=== PATIENT | male | born 1980 | race Caucasian/White ===

== ENCOUNTER → 2022-08-30 15:01 | Outpatient (CLI) | payer BC, SELFPAY ==
--- NOTE | ~2022-08-30 | XR_ITS ---
EXAM: XR knee RT min 4V DATE: 08/30/2022 15:23 HISTORY: no injury right knee pain for 2 weeks . COMPARISON: None available. FINDINGS: Normal mineralization. No fracture or dislocation. No lytic or blastic lesion. Mild medial joint space narrowing. Mild tricompartmental osteophytosis. Moderate volume joint fluid. No erosion or periosteal change. Soft tissues within normal limits. IMPRESSION: Mild tricompartmental right knee osteoarthritis. Moderate joint effusion. Reviewed, dictated and finalized at location K. IMPRESSION: Mild tricompartmental right knee osteoarthritis. Moderate joint eff usion.
== END ==
PROVIDERS: PCP Family Medicine; Visit Provider Physician Assistant
DX: M17.11 Unilateral primary osteoarthritis, right knee (principal); M25.461 Effusion, right knee
CPT/HCPCS: 73564

== ENCOUNTER 2022-11-13 13:40 | Outpatient (CLI) | payer BC, SELFPAY ==
--- NOTE | ~2022-11-13 | MR_ITS ---
EXAMINATION: MR knee RT wo con DATE: 11/13/2022 14:19 INDICATION: M25.561 - Pain in right knee TECHNIQUE: Magnetic resonance imaging (MRI) of the right knee was performed without intravenous contr ast. Sequences included axial PD-weighted FS FSE, coronal PD-weighted FSE and PD-weighted FS FSE, sag ittal PD-weighted FSE, and sagittal T2-weighted FS FSE. COMPARISON: X-ray right knee 08/22/2022. FINDINGS: Medial compartment: Complex tear of the medial meniscus involving widespread apical blunting, a bucket-handle type tear w ith displacement of the flap towards the intercondylar notch, as well as horizontally and obliquely o riented tear through the posterior horn. Mild diffuse cartilage thinning. No focal cartilage defect. Mild osteophytosis Lateral compartment: Meniscus and cartilage intact. Patellofemoral compartment: Mild partial thickness cartilage irregularity along the medial facet. Retinacula intact. Ligaments and tendons: The ACL, PCL, MCL, and LCL are intact. Small longitudinally oriented type tear of the semimembranosus . Remaining flexor and extensor tendons are intact. Fluid: Small volume joint fluid. Osseous/other: No suspicious focal or diffuse marrow signal. IMPRESSION: Complex tears of the medial meniscus, including a bucket-handle flap displaced toward the intercondyl ar notch. Small longitudinally oriented type tear of the semimembranosus. Reviewed, dictated and finalized at location K. IMPRESSION: Complex tears of the medial meniscus, including a bucket-handle flap displaced toward the intercondylar notch. Small longitudinally oriented type tear of the semimembranosus.
== END 2022-11-13 13:41 | disposition home or self-care (01) ==
PROVIDERS: PCP Family Medicine; Visit Provider Physician Assistant
DX: S83.231D Complex tear of medial meniscus, current injury, right knee, subsequent encounter (principal); X58.XXXD Exposure to other specified factors, subsequent encounter
CPT/HCPCS: 73721

== ENCOUNTER 2024-06-16 07:21 | Emergency (ER) | payer BC, SELFPAY ==
[2024-06-16] VITALS (7 sets, daily range): BP systolic 122–155; BP diastolic 79–99; PULSE 85–100; RESP 11–28; TEMP 37.1; O2SAT 97–100
--- NOTE | ~2024-06-16 | XR_ITS ---
Portable chest x-ray Comparison: 09/19/2009 Clinical History: CVA Findings: Lungs are clear, without focal consolidation or pleural effusion. Cardiomediastinal silho uette is stable. Bones and soft tissues are unremarkable. Impression: Normal chest Reviewed, dictated and finalized at location . Impression: Normal chest
--- NOTE | ~2024-06-16 | CT_ITS ---
EXAMINATION: CTA BRAIN/CAROTID DATE: 06/16/2024 09:22 INDICATION: Intermittent and loss of vision and balance TECHNIQUE: Computed tomographic angiography (CTA) of the head and neck was performed with 100 mL Omni paque-350 intravenous contrast. Multiplanar reconstructions and maximum intensity projection 3D-recon structions of the carotid arteries and of the intracranial arteries were created by the technologist on a separate workstation. Precontrast CT of the head was also obtained. Automated exposure control and iterative reconstruction technique were employed.The dose-length product was 1829.51 mGy-cm. COMPARISON: None. FINDINGS: Carotid arteries: Visualized aortic arch and great vessels arising from the arch are normal in caliber with no evident atherosclerotic plaque or dissection. There is 0% stenosis of the right and left carotid bulbs relati ve to normal distal artery lumen diameter (NASCET criteria). Bilateral intracranial vertebral arterie s are codominant with no evident stenosis. Head: No acute intracranial hemorrhage, acute infarction or abnormal extra axial fluid collection. Ventricl es are normal and symmetric. No mass/mass effect. No abnormal enhancing lesions on postcontrast imagi ng. The orbits and mastoid air cells are normal. Mild mucosal thickening in the left maxillary sinus. Intracranial arteries There is no hemodynamically significant stenosis in the vertebral, basilar and internal carotid arter ies. Vertebral arteries are codominant. There are no aneurysms identified. Both A1 and P1 segments a re patent. Cerebral arterial arborization appears symmetric. IMPRESSION: 1. 0% stenosis of the right and left carotid bulbs relative to normal distal artery lumen diameter (N ASCET criteria). 2. Unremarkable cerebral CT angiogram with no evident stenosis, aneurysm or thrombosis. 3. Normal brain with no acute intracranial process or abnormally enhancing brain lesions. Reviewed, dictated and finalized at location A. IMPRESSION: 1. 0% stenosis of the right and left carotid bulbs relative to normal distal ar kushal lumen diameter (NASCET criteria). 2. Unremarkable cerebral CT angiogram with no evident stenosis, aneurysm or thr ombosis. 3. Normal brain with no acute intracranial process or abnormally enhancing brai n lesions.
--- OUTSIDE RECORDS SUMMARY | 2024-06-16 07:24 | XMS_ITS | Clinical Summary ---
Author Organization [employer] Address [address] [facility] Attn: Epic Prelude ADT [place] [address] Care Team Providers Care Delivery Person Name Role Phone Unavailable Primary Care Provider Unavailabl e Social History Tobacco Use Types Packs/Day Years Used Date Smoking Tobacco: Never Assessed Sex and Gender Information Value Date Recorded Sex Assigned at Not on file Legal Sex Male 10:51 PM CDT Gender Identity Not on file Sexual Orientation Not on file Plan of Treatment Health Maintenance Due Date Last Done Comments DTAP/TDAP/TD VACCINES (1 - Tdap) 07/15/1998 HEPATITIS B VACCINES (1 of 3 - 19+ 3-dose series) 07/15/1998 INFLUENZA VACCINE (#1) 2023 HPV VACCINES Aged Out No longer eligi ble based on patient's age to complete this topic PNEUMOCOCCAL VACCINE 0-49 YEARS Aged Out No longer eligible based on patient's age to complete this topic
--- OUTSIDE RECORDS SUMMARY | 2024-06-16 07:24 | XMS_ITS | Clinical Summary ---
Author Organization [facility] [address] Address [address] [place] [address] Care Team Providers Care Air Marshal Name Role Phone Roxy Medeiros Primary Care Provider Unavaila ble Allergies No known active allergies Medications No known medications Active Problems No known active problems Social History Tobacco Use Types Packs/Day Years Used Date Smoking Tobacco: Never Cigarettes Smokeless Tobacco: Never Tobacco Cessation:Counseling Given: Not Answered Personal Safety Answer Date Recorded Getting School Help Needed Not on file 08/19 Sex and Gender Information Value Date Recorded Sex Assigned at Not on file Legal Sex 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 Gender Identity Male 08/27/2023 11:24 AM CDT Sexual Orientation Not on file Obstetrics History Last Filed Vital Signs Vital Sign Reading Time Taken Comments Blood Pressure - - Pulse - - Temperature - - Respiratory Rate - - Oxygen Saturation - - Inhaled Oxygen Concentration - - Weight 79.4 kg (175 lb) 09/03/2023 10:39 AM CDT Height 175.3 cm (5' 9 ) 09/03/2023 10:39 AM CDT Body Mass Index 25.84 09/03/2023 10:39 AM CDT Plan of Treatment Health Maintenance Due Date Last Done Comments Depression Screening 1979 Hepatitis C Screening 1979 Varicella Vaccines (1 of 2 - 13+ 2-dose series) 07/15/1992 Regular Well Visit/Exam 18-64 07/15/1997 DTaP/Tdap/Td Vaccine (5 - Td or Tdap) 05/06/2022 05/06/2012, 10/09/2007, 08/13/1997, Additional history exists Covid-19 Vaccine (5 - 2024-25 season) 2023 12/22/2022, 02/15/2021, 04/27/2020, Additional history exists Influenza Vaccine (#1) 2023 3, 03/16/2021, 02/04/2020, Additional history exists Hepatitis B Screening Completed 08/15/2010 , 01/24/2010, 10/09/2007 HPV Vaccines Aged Out No longer eligi ble based on patient's age to complete this topic Pneumococcal vaccine <65 Aged Out No longer eligible based on patient's age to complete this topic Insurance [facility] FEDERAL Care Teams Air Marshal Relationship Specialty Start Date End Date Roxy Medeiros PCP - General 05/29/06
--- OUTSIDE RECORDS SUMMARY | 2024-06-16 07:24 | XMS_ITS | Referral Summary ---
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
--- OUTSIDE RECORDS SUMMARY | 2024-06-16 07:24 | XMS_ITS | Patient Health Record ---
Author Organization [facility] Address [address] [place], [place] [id number] Care Team Providers Care Child Welfare Caseworker Name Role Phone Toi Pappas Primary Care Provider ALLERGIES No Known Allergies REASON FOR REFERRAL No Information MEDICATIONS Medication SIG (Take, Route, Frequency, Duration) Notes Start Date End Date Status Meloxicam Active SOCIAL HISTORY Tobacco Use: Social History Observation Description Date Details (start date - stop date) Never Smoker NA - NA Sex Assigned At : Social History Observation Description Sex Assigned At Unknown Tobacco Use/Smoking Question Answer Notes Are you a nonsmoker PROBLEMS Problem Type ICD Code Onset Dates Problem Status W/U Status Risk SNOMED Code Notes Problem Right knee pain (M25.561) Active confirmed Right knee pain (72358242943 4105) Problem Acute medial meniscus tear of right knee (S83.241A) Active confirmed PLAN OF TREATMENT No Information Insurance Providers Payer Name Payer Address Payer Phone Subscriber Number Group Number Insured Name Patient Relationship to Insured Coverage Start Date Coverage End Date [employer] [address] [place] [address] [id number] Tong Abbott Self - patient is the insured MEDICAL (GENERAL) HISTORY Surgical History Surgery Date(Month/Year) Eye Surgery
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
--- OUTSIDE RECORDS SUMMARY | 2024-06-16 07:25 | XMS_ITS | Clinical Summary ---
Author Organization [facility] Address [address] [place] [address] Care Team Providers Care Date Night Sitter Name Role Phone Unavailable Primary Care Provider Unavailabl e Social History Tobacco Use Types Packs/Day Years Used Date Smoking Tobacco: Never Assessed Sex and Gender Information Value Date Recorded Sex Assigned at Not on file Legal Sex Male 7:20 PM CDT Gender Identity Not on file Sexual Orientation Not on file Plan of Treatment Health Maintenance Due Date Last Done Comments Annual Physical 07/15/1982 Hepatitis C 07/15/1997 DTaP, Tdap and Td Vaccines ( 1 - Tdap) 07/15/1998 Hepatitis B Vaccines (1 of 3 - 19+ 3-dose series) 07/15/1998 COVID-19 Vaccine (2023-2 5 season) 2023 HPV Vaccines Aged Out No longer eligi ble based on patient's age to complete this topic Meningococcal B Vaccine Aged Out No l onger eligible based on patient's age to complete this topic Meningococcal Vaccine Aged Out No matthew gonzales eligible based on patient's age to complete this topic Pneumococcal Vaccine: Pediat rics (0 to 5 Years) and At-Risk Patients (6 to 49 Years) Aged Out No longer eligible b ased on patient's age to complete this topic RSV Immunizations Under 20 Months Aged Out No longer eligible based on patient's age to complete this topic
--- OUTSIDE RECORDS SUMMARY | 2024-06-16 07:25 | XMS_ITS ---
Author Organization [facility] Address [address] [place], [place] [address] Care Team Providers Care Manager Of Sales Name Role Phone Toi Pappas Primary Care Provider [phone] ALLERGIES No Known Allergies REASON FOR REFERRAL Reason Evaluate and treat p er protocol modalities strengthening ROM: active and passive Duration: 6 weeks Frequency: 2-3 times per week Gait Training Diagnosis 1 Acute medial meniscu s tear of right knee (S83.241A) Referral Organization [facility] Referring Provider First Name Toi Referring Provider Last Name Mian Referring Provider Speciality Orthopedic Surgery Referred Provider Specialty -Physical Th erapy Referral Priority Routine REASON FOR VISIT F/u right knee scope MEDICATIONS Medication SIG (Take, Route, Frequency, Duration) Notes Start Date End Date Status Meloxicam Active SOCIAL HISTORY Tobacco Use: Social History Observation Description Date Details (start date - stop date) Never Smoker NA - NA Sex Assigned At : Social History Observation Description Sex Assigned At Unknown Tobacco Use/Smoking Question Answer Notes Are you a nonsmoker VITAL SIGNS BMI 25.10 kg/m2 01/08/2023 Blood pressure systolic 122 mm Hg 01/09/20 23 Blood pressure diastolic 66 mm Hg 023 Height 69 in 01/08/2023 Weight 170 lbs 01/08/2023 Encounters Encounter Location Date Provider Diagnosis [facility] [address] [place], [place] [id number] 01/08/2023 Toi Pappas Acute medial meniscus tear of right knee S83.241A ASSESSMENTS Encounter Date Diagnosis Assessment Notes Treatment Notes Treatment Clinical Notes 01/08/2023 Acute medial meniscus tear of right knee (ICD-10 - S83.241A) We will get him into a little bit of PT. We will give him a work note as he obviously will not be working this week. Hopefully therapy will help him. PLAN OF TREATMENT Treatment Notes Assessment Notes Acute medial meniscus tear of right knee We will get him into a little bit of PT. We will give him a work note as he obviously will not be working this week. Hopefully therapy will help him. Referrals Referral Date Details Evaluate and treat p er protocol modalities strengthening ROM: active and passive Duration: 6 weeks Frequency: 2-3 times per week Gait Training Consultation Request Notes Referral Date Referring Provider Referred Provider Not es 01/08/2023 Toi Pappas , Evaluate and treat per protocol modalities strengthening ROM: active and passive Duration: 6 weeks Frequency: 2-3 times per week Gait Training
--- OUTSIDE RECORDS SUMMARY | 2024-06-16 07:25 | XMS_ITS | Clinical Summary ---
Author Organization [facility] Address [address] [place] [address] Care Team Providers Care Canadian Bacon Tier Name Role Phone Pcp, Susan Garrison - Primary Care Provider Un available Source Comments [facility],non-owned Affiliates and Associated Physician Practices is amultiple site organization consisting of ambulatory clinics and hospital sitesin [place], [place], [place] and [place]. This disclosure is being madepursuant to the Care Everywhere program and may not contain all information available regarding this patient. Last updated 17.[employer] [facility] Allergies No known active allergies Medications * Be aware that medications may not be up to date on this document. Alwaysverify current medications with the patient. No known medications Active Problems No known active problems Resolved Problems Problem Noted Date Diagnosed Date Resolved Date Sinusitis, acute 03/13/2014 07/15/2014 No active medical problems 0 05/17/2015 Immunizations Immunization Administration Dates Next Due HEP A VACCINE, ADULT 01/24/2010,01/13/2004,02/13 HEP B VACCINE ADOL/ADULT 2 DOSE 08/15/2010,01/24,10/09/2007 INFLUENZA VACCINE 12/18/2014, 1,01/24/2010,12/08/2004, 08/17/1997 MENINGOCOCAL MENINGITIS 08/13/1997 MMR 06/25/2014,08/23/1997 Measles & Rubella 08/17/1997 POLIO OPV 08/17/1997 TD (AGE 7-ADULT) 10/09/2007 TD VACCINE 08/13/1997 TDAP (7yrs+) 05/06/2012 Family History Medical History Relation Name Comments Hypertension Father Relation Name Status Comments Father Alive Mother Alive Social History Tobacco Use Types Packs/Day Years Used Date Smoking Tobacco: Former Cigarettes Smokeless Tobacco: Never Alcohol Use Standard Drinks/Week Comments Yes 0 (1 standard drink = 0.6 oz pur e alcohol) ocass Sex and Gender Information Value Date Recorded Sex Assigned at Not on file Legal Sex Male 1:41 PM CDT Gender Identity Not on file Sexual Orientation Not on file 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 Not on file Not o n file Last Filed Vital Signs Vital Sign Reading Time Taken Comments Blood Pressure 122/78 07/12/2015 1:47 PM CDT Pulse 80 07/12/2015 1:47 PM CDT Temperature 37.1 C (98.7 F) 07/12/2015 1:47 PM CDT Respiratory Rate 16 07/12/2015 1:47 PM CDT Oxygen Saturation 98% 06/21/2015 1:05 PM CDT Inhaled Oxygen Concentration - - Weight 74.8 kg (165 lb) 07/29/2015 8:06 AM CDT Height 175.3 cm (5' 9 ) 07/29/2015 8:06 AM CDT Body Mass Index 24.37 07/29/2015 8:06 AM CDT Plan of Treatment Health Maintenance Due Date Last Done Comments HIV SCREENING 07/15/1994 HEPATITIS C SCREENING 07/11/1997 LIPID TESTING 07/23/2020 07/24/2015, 07/04, 07/19/2012 DTAP/TDAP/TD VACCINES (4 - Td or Tdap) 05/06/2022 05/06/2012, 10/09/2007, 08/13/1997 COVID-19 VACCINE ( season) 2023 DEPRESSION SCREENING 03/05/2024 INFLUENZA VACCINE (Season Ended) 2024 12/18/2014, 12/30/2010, 01/24/2010, Additional history exists ZOSTER VACCINE (1 of 2) 07/15/2029 MENINGOCOCCAL GROUPS A/C/Y/W VACCINE Completed 08/13/1997 HEPATITIS B VACCINE Completed 08/15/2010, 01/24/2010, 10/09/2007 HIB VACCINE Aged Out No longer eligi ble based on patient's age to complete this topic HPV VACCINE Aged Out No longer eligi ble based on patient's age to complete this topic MENINGOCOCCAL (Group B) VACCINE SHARED DECISION-MAKING Aged Out No longer eligible based on patient's age to complete this topic PNEUMOCOCCAL VACCINE Aged Out No long er eligible based on patient's age to complete this topic Goals Goal Patient Goal Type Associated Problems Recent Progress Patient-Stated? Author Exercise 5X per week (30 min per time) Exercise Yaima Mason Note: The [employer] recommends all adults get a minimum of 150 minutes of moderate physical activity a week. This can be completed as 30 minutes of brisk walking on most days of the week. Even 10 minutes of exercise a day can provide benefit and will add up over the week. If able, try to take the stairs instead of the elevator or park father away in the parking lot. Start slow and try to increase your amount of activity over several weeks. Exercise will help to improve your cholesterol readings and blood pressure and to be overall healthier. Yearly PCP visit Lifestyle Yaima Mason Procedures Procedure Name Priority Date/Time Associated Diagnosis Comments LIPID PROFILE Routine 07/24/2015 9:11 AM CDT Physical exam, annual Screening for lipid disorders from Last 3 Months or Most Recently Relevant to Health Maintenance Results * (ABNORMAL) LIPID PROFILE (07/24/2015 9:11 AM CDT) Cholesterol 207(H) 100 - 199 mg/dL [facility] INSURANCE BILL Triglycerides 46 0 - 149 mg/dL [facility] INSURANCE BILL HDL Cholesterol 73 >39 mg/dL [facility] INSURANCE BILL Comment: According to ATP-III Guidelines, HDL-C >59 mg/dL is considered a negative risk factor for CHD. VLDL Calculated 9 5 - 40 mg/dL [facility] INSURANCE BILL LDL Calculated 125(H) 0 - 99 mg/dL [facility] INSURANCE BILL Comment NOT NEEDED [facility] INSURANCE BILL Comment:Ancillary determined the test is not needed Blood specimen (specimen) BLOOD SPECIMEN / Unknown 07/24/2015 9:11 AM CDT 07/24/2015 1:06 PM CDT Narrative Resulting Agency Comment [facility] [address] [phone] [place] Oksana Coates MD LAB - CHEMISTRY ORDERABLES Fin al Result [facility] INSURANCE BILL [address] [place] [address] from Last 3 Months or Most Recently Relevant to Health Maintenance Insurance Care Teams Canadian Bacon Tier Relationship Specialty Start Date End Date Susan Michelle Im-Fm PCP - General 09/29/22
--- OUTSIDE RECORDS SUMMARY | 2024-06-16 07:25 | XMS_ITS | Encounter Summary ---
Author Organization [facility] Health Address [address] [place] [address] Care Team Providers Care Fabricator Special Items Name Role Phone Terrence Downs MD Primary Care Provider [phone] Oksana Coates MD Primary Care Provider [phone] [facility], [facility] Provider Un available Encounter Details Date Type Department Care Team (Late st Contact Info) Description 05/18/2015 [facility] [address] [place] [address] Oksana Coates MD [address] [facility] [address] [place] [address] Social History Tobacco Use Types Packs/Day Years Used Date Smoking Tobacco: Former Alcohol Use Standard Drinks/Week Comments Yes 0 (1 standard drink = 0.6 oz pur e alcohol) ocass Sex and Gender Information Value Date Recorded Sex Assigned at Not on file Legal Sex Male 1:41 PM CDT Gender Identity Not on file Sexual Orientation Not on file documented as of this encounter Plan of Treatment Not on file documented as of this encounter Visit Diagnoses Not on filedocumented in this encounter Care Teams Fabricator Special Items Relationship Specialty Start Date End Date Terrence Downs MD [address] [place] [address] PCP - General Family Medicine 07/19/12 07/11/15 Oksana Coates MD [address] [place] [address] PCP - General Family Medicine 07/12/15 09/28/22 Susan Michelle [facility] PCP - General 09/29/22 documented as of this encounter
--- OUTSIDE RECORDS SUMMARY | 2024-06-16 07:25 | XMS_ITS ---
Author Organization [facility] Address [address] [place], [place] [address] Care Team Providers Care Scheduling Assistant Name Role Phone Toi Pappas Primary Care Provider [phone] REASON FOR VISIT right knee arthroscopy MEDICATIONS Medication SIG (Take, Route, Fr equency, Duration) Notes Start Date End Date Status Meloxicam Active traMADol HCl 50 MG 1 tablet as needed O rally four a day for 7 days 12/25/2022 Active Encounters Encounter Location Date Provider Diagnosis [facility] [address] [place] [address] 12/28/2022 Toi Pappas Acute medial meniscus tear of right knee S83.241A ASSESSMENTS Encounter Date Diagnosis Assessment Notes Treatment Notes Treatment Clinical Notes 12/28/2022 Acute medial meniscus tear of right knee (ICD-10 - S83.241A) PLAN OF TREATMENT Medication Medication Name Sig Start Date Stop Date Notes traMADol HCl 50 MG 1 tablet as needed O rally four a day for 7 days 12/25/2022
--- OUTSIDE RECORDS SUMMARY | 2024-06-16 07:25 | XMS_ITS | Encounter Summary ---
Author Organization [facility] Health Address [address] [place] [address] Care Team Providers Care Act English Tutor Name Role Phone Terrence Downs MD Primary Care Provider [phone] Oksana Coates MD Primary Care Provider [phone] PcpSusan Im-Fm Primary Care Provider Un available Encounter Details Date Type Department Care Team (Late st Contact Info) Description 05/27/2013 Therapy Visit [facility]TERNAL [facility] DEPT Unknown, Provider Social History Tobacco Use Types Packs/Day Years Used Date Smoking Tobacco: Never Alcohol Use Standard Drinks/Week Comments [...] on filedocumented in this encounter Care Teams Act English Tutor Relationship Specialty Start Date End Date Terrence Downs MD [address] [place] [address] PCP - General Family Medicine 07/19/12 07/11/15 Oksana Coates MD [address] [place] [address] PCP - General Family Medicine 07/12/15 09/28/22 Susan Michelle Im- PCP - General 09/29/22 documented as of this encounter
--- OUTSIDE RECORDS SUMMARY | 2024-06-16 08:15 | XMS_ITS | Encounter Summary ---
Author Organization [facility] Health Address [address] [place] [address] Care Team Providers Care Photograph Inspector Name Role Phone Terrence Downs MD Primary Care Provider Oksana Coates MD Primary Care Provider [phone] [facility] Provider Un available Encounter Details Date Type Department Care Team (Late st Contact Info) Description 05/18/2015 [facility] [address] [place] [address] Oksana Coaets MD [address] [facility] [address] [place] [address] Social History Tobacco Use Types [...] on filedocumented in this encounter Care Teams Photograph Inspector Relationship Specialty Start Date End Date Terrence Downs MD [address] [place] [address] PCP - General Family Medicine 07/19/12 07/11/15 Oksana Coates MD [address] [place] [address] PCP - General Family Medicine 07/12/15 09/28/22 Susan Michelle [facility] PCP - General 09/29/22 documented as of this encounter
--- OUTSIDE RECORDS SUMMARY | 2024-06-16 08:15 | XMS_ITS | Clinical Summary ---
Author Organization [facility] Address [address] Attn: Epic Prelude ADT [place] [address] Care Team Providers Care Emt Intermediate Name Role Phone Unavailable Primary Care Provider [...]
--- OUTSIDE RECORDS SUMMARY | 2024-06-16 08:15 | XMS_ITS | Encounter Summary ---
Author Organization [facility] Health Address [address] [place] [address] Care Team Providers Care Broke Worker Name Role Phone Terrence Downs MD Primary Care Provider [phone] Oksana Coates MD Primary Care Provider [phone] PcpSusan Im-Fm Primary Care Provider Un available [...] on filedocumented in this encounter Care Teams Broke Worker Relationship Specialty Start Date End Date Terrence Downs MD [address] [place] [address] PCP - General Family Medicine 07/19/12 07/11/15 Oksana Coates MD [address] [place] [address] PCP - General Family Medicine 07/12/15 09/28/22 Susan Michelle Im- PCP - General 09/29/22 documented as of this encounter
--- OUTSIDE RECORDS SUMMARY | 2024-06-16 08:15 | XMS_ITS | Clinical Summary ---
Author Organization [facility] Address [address] [place] [address] Care Team Providers Care Chemical Applicator Name Role Phone Unavailable Primary Care Provider [...]
--- OUTSIDE RECORDS SUMMARY | 2024-06-16 08:15 | XMS_ITS | Clinical Summary ---
Author Organization [facility] [employer] Address [address] [place] [address] Care Team Providers Care Mergers And Acquisitions Consultant Name Role Phone Pcp, Susan Garrison - Primary Care Provider Un available Source Comments [facility] [employer],non-owned Affiliates and Associated Physician Practices is amultiple site organization consisting of ambulatory clinics and hospital sitesin [place], [place], [place] and [place]. This disclosure is being madepursuant to the Care Everywhere program and may not contain all information available regarding this patient. 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
--- NOTE | 2024-06-16 08:30 | ECG_ITS ---
Test Date: 2024-06-16 08:51:42 Measurements Intervals [place] Rate: 81 P: 71 [place]: 159 QRS: 64 QRSD: 89 T: -3 QT: 329 QTc: 382 Interpretive Statements SINUS RHYTHM LEFT ATRIAL ENLARGEMENT CANNOT R/O SEPTAL INFARCT, AGE INDETERMINATE ST-T WAVE ABNORMALITY IN INFERIOR LEADS- CONSIDER ISCHEMIA BASELINE ARTIFACT- I, II, III ABNORMAL ECG No previous ECG available for comparison Electronically Signed On 06-16-2024 08:58:43 CDT by Giovanni Mccauley D.O.
[2024-06-16 08:55] LABS: Glucose Point of Care 93 mg/dl (65-105)
[2024-06-16 08:57] LABS: Basophils Percent Auto 0.5 % (0.2-1.2); Eosinophils Absolute Auto 0.1 K/mm3 (0-0.3); Eosinophils Percent Auto 0.6 % (0-4.4); Hematocrit 51.5 % (42.0-52.0); Hemoglobin 17.9 g/dL (14.0-18.0); Immature Granulocyte Absolute 0.02 K/mm3 (0.00-0.031); Immature Granulocyte Percent A 0.2 % (0-0.5); Lymphocytes Absolute Auto 1.71 K/mm3 (0.9-3.2); Lymphocytes Percent Auto 21.1 % (18.3-44.2); Mean Corpuscular HGB Conc 34.8 g/dl (32-36); Mean Corpuscular Hemoglobin 30.7 pg (26-34); Mean Corpuscular Volume 88.2 fl (80-100); Mean Platelet Volume 9.8 fl (7.4-10.4); Monocytes Absolute Auto 0.7 K/mm3 (0.1-0.6); Monocytes Percent Auto 8.9 % (2.6-8.5); Neutrophils Absolute Auto 5.6 K/mm3 (1.3-6.7); Neutrophils Percent Auto 68.7 % (45.5-73.1); Platelet Count Result 266 k/mm3 (150-375); Red Blood Count 5.84 M/mm3 (4.6-6.20); Red Cell Distribution Width 11.7 % (11.5-14.5); White Blood Count 8.1 K/mm3 (4.5-10.0)
[2024-06-16 09:09] LABS: Alanine Aminotransferase 36 U/L (6-50); Albumin Level 4.9 g/dL (3.5-5.1); Alkaline Phosphatase 59 U/L (38-126); Anion Gap 9 mmol/L (4-12); Aspartate Amino Transferase 34 U/L (17-59); Bilirubin,Total 1.1 mg/dL (0.2-1.3); Blood Urea Nitrogen 21 mg/dL (9-20); Calcium 9.7 mg/dL (8.4-10.2); Carbon Dioxide 30 mmol/L (22-30); Chloride 97 mmol/L (98-107); Estimated CRCL calculation 69 ml/min; Estimated Glomerular Filt Rate > 60; Glucose 101 mg/dL (65-110); Partial Thromboplastin Time 23.9 Seconds (22.3-36.8); Potassium 4.2 mmol/L (3.4-5.0); Sodium 136 mmol/L (137-145)
[2024-06-16 09:21] LABS: Troponin I < 0.012 ng/mL (0.000-0.034)
--- NOTE | 2024-06-16 12:11 | ED.GENADULT ---
HPI - General Adult General Chief complaint: Eye Problems Stated complaint: blurred vision Time Seen by Provider: 06/16/24 07:46 History of Present Illness HPI narrative: This is a 43-year-old male works at least 40 minutes presenting of episodic blurry vision. Over the last 2 weeks he has had 3 episodes that lasted 30 minutes each of bilateral blurry vision. He has removed his contacts during this time and there is no change in his vision. One episode was associated with slight headache. And 1 episode he felt like he was off-balance. The episodes resolve and then he is asymptomatic until the next event. He got new contacts approximately 3 weeks ago. He denies any current dysarthria, dysphagia, loss of coordination or double vision. He is currently asymptomatic. No fevers chills, trauma, chest pain, difficulty breathing, abdominal pain or urinary symptoms. No drug use. Patient has a history of strabismus which was repaired with surgery as a child. Related Data Allergies Allergy/AdvReac Type Severity Reaction Status Date / Time No Known Allergies Allergy Mild Verified 06/16/24 07:41 [facility] Past Medical History Medical History Irritable bowel syndrome Surgical History Surgical History History of strabismus surgery right 2007 Social History Social History Smoking status: Former smoker Alcohol intake: current Alcohol use details: rarely Substance use: never Substance use type: does not use Lack of Transportation: No Lack of Food: Never True Current Housing: I Have Housing Concerned About Future Housing: No Difficulty Paying Gas/Electric Bills: No Difficulty Paying for Meds: No Currently Unemployed: No Education: Bachelor's Degree Difficulty w/ Childcare or Family Care: No Living arrangements: with family Occupation/Education: occupation Gender identity (if verbalized by the patient): Male Sexual Orientation (if Verbalized by the Patient): Straight or Heterosexual Spiritual care concerns: No Exam Narrative: APPEARANCE: No apparent distress. Head: atraumatic. EYES: EOMI, NOSE: Atraumatic NECK: Trachea midline RESPIRATORY: No increased rate of breathing CTAB CARDIOVASCULAR: RRR, no peripheral edema ABDOMINAL: Non-distended soft nontender MUSCULOSKELETAl: No obvious deformities NEURO: Alert. Cranial nerves 2-12 grossly intact. Sensation light touch, motor function cerebellar function intact for 4 extremities. Gait exam was normal. SKIN:: Warm, dry. Normal color PSYCHIATRIC: Normal affect Eye exam: Visual acuity per nursing note IOP 15 right, 17 left Fluorescein stain negative bilaterally Extraocular eye movements intact, no findings of the external eye, cornea, or anterior chamber. Peripheral vision intact, pupils equal and active reactive without defect Course Vital Signs Vital signs: Vital Signs Temperature 98.8 F 06/16/24 07:26 Pulse Rate 93 06/16/24 07:26 Respiratory Rate 18 06/16/24 07:26 Blood Pressure 155/99 H 06/16/24 07:26 Pulse Oximetry 100 06/16/24 07:26 Oxygen Delivery Room Air 06/16/24 07:26 Temperature 98.8 F 06/16/24 07:26 Pulse Rate 92 06/16/24 10:24 Respiratory Rate 28 H 06/16/24 10:24 Blood Pressure 122/86 06/16/24 10:24 Pulse Oximetry 100 06/16/24 10:24 Oxygen Delivery Room Air 06/16/24 07:26 Medical Decision Making MDM Narrative Medical decision making narrative: -Course: 43-year-old male presenting with intermittent blurry vision over the last 2 weeks. His eye exam and neurologic exam are normal at this time. He is currently asymptomatic. His CT brain and CTA of the head and neck did not show any acute findings. Laboratory studies within normal limits. Case was discussed with Dr. Amish Rosales from [facility] Ophthalmology. We discussed transfer versus outpatient follow-up with Dr. Rosales feels that he is safe for outpatient follow-up. Patient has been provided the the clinic again arrange close outpatient follow-up. He is also encouraged to call his reel cart operator for evaluation. patient will be discharged. Patient given return precautions. -DDX includes but is not limited to: CVA, vertebral artery dissection, CRAO/CRVO, corneal abrasion, dry eyes, retinal detachment, glaucoma Vital Signs Vital Signs: Vital Signs Temperature 98.8 F 06/16/24 07:26 Pulse Rate 93 06/16/24 07:26 Respiratory Rate 18 06/16/24 07:26 Blood Pressure 155/99 H 06/16/24 07:26 Pulse Oximetry 100 06/16/24 07:26 Oxygen Delivery Room Air 06/16/24 07:26 Temperature 98.8 F 06/16/24 07:26 Pulse Rate 92 06/16/24 10:24 Respiratory Rate 28 H 06/16/24 10:24 Blood Pressure 122/86 06/16/24 10:24 Pulse Oximetry 100 06/16/24 10:24 Oxygen Delivery Room Air 06/16/24 07:26 Lab Data 06/16/24 08:49 06/16/24 08:49 Labs: Lab Results 06/16/24 06/16/24 Range/Units 08:46 08:49 WBC 8.1 (4.5-10.0) K/mm3 RBC 5.84 (4.6-6.20) M/mm3 Hgb 17.9 (14.0-18.0) g/dL Hct 51.5 (42.0-52.0) % MCV 88.2 (80-100) fl MCH 30.7 (26-34) pg MCHC 34.8 (32-36) g/dl RDW 11.7 (11.5-14.5) % Plt Count 266 (150-375) k/mm3 MPV 9.8 (7.4-10.4) fl Immature Gran % (Auto) 0.2 (0-0.5) % Neut % (Auto) 68.7 (45.5-73.1) % Lymph % (Auto) 21.1 (18.3-44.2) % [place] % (Auto) 8.9 H (2.6-8.5) % Eos % (Auto) 0.6 (0-4.4) % Baso % (Auto) 0.5 (0.2-1.2) % Lymph # (Auto) 1.71 (0.9-3.2) K/mm3 [place] # (Auto) 0.7 H (0.1-0.6) K/mm3 Eos # (Auto) 0.1 (0-0.3) K/mm3 Baso # (Auto) 0.0 (0.0-0.1) K/mm3 Abs Immat Gran (auto) 0.02 (0.00-0.031) K/mm3 Absolute Neuts (auto) 5.6 (1.3-6.7) K/mm3 Absolute Nucleated RBC 0.000 (0.0-0.012) K/mm3 Nucleated RBC % 0.0 (0.0-0.2) % PT 13.0 (11.1-14.7) Seconds INR 1.0 APTT 23.9 (22.3-36.8) Seconds Sodium 136 L (137-145) mmol/L Potassium 4.2 (3.4-5.0) mmol/L Chloride 97 L (98-107) mmol/L Carbon Dioxide 30 (22-30) mmol/L Anion Gap 9 (4-12) mmol/L BUN 21 H (9-20) mg/dL Creatinine 1.22 (0.7-1.3) mg/dL Estim Creat Clear Calc 69 ml/min Estimated GFR > 60 (59 - ) Glucose 101 (65-110) mg/dL POC Capillary Glucose 93 (65-105) mg/dl Calcium 9.7 (8.4-10.2) mg/dL Total Bilirubin 1.1 (0.2-1.3) mg/dL AST 34 (17-59) U/L ALT 36 (6-50) U/L Alkaline Phosphatase 59 (38-126) U/L Troponin I < 0.012 (0.000-0.034) ng/mL Total Protein 8.0 (6.3-8.2) g/dL Albumin 4.9 (3.5-5.1) g/dL Discharge Plan Discharge Clinical Impression: Blurred vision Patient Disposition: Home Condition: Stable Instructions: Antibiotic Form, Blurred Vision (ED) Additional Instructions: You were seen in the emergency department for blurry vision. Your workup here including laboratory studies, CT brain, CTA head and neck and eye exam were all within normal limits. You do not currently have any blurry vision. Please call the [facility] Ophthalmology Clinic at when you leave here and arrange close follow-up. If you redevelop blurry vision or developed any new or worsening symptoms please return to the emergency department immediately. You can also follow up with your reel cart operator. Patient Language: Kinyarwanda Prescriptions: No Action triamterene-hydrochlorothiazid 37.5-25 mg tablet 1 tablet PO QAM Qty: 100 1RF Follow-up/Referrals: Sriram Clarke MD [Primary Care Provider] -
== END 2024-06-16 12:30 | disposition home or self-care (01) ==
PROVIDERS: Emergency Provider Emergency Medicine; PCP Family Medicine
DX: H53.8 Other visual disturbances (principal); K58.9 Irritable bowel syndrome, unspecified; Z87.891 Personal history of nicotine dependence; R94.31 Abnormal electrocardiogram [ECG] [EKG]
CPT/HCPCS: 36415; 70496; 70498; 71045; 80053; 82948; 84484; 85025; 85610; 85730; 93005; 99284; Q9967